=== PATIENT | female | born 1980 | race Caucasian/White ===

== ENCOUNTER 2016-11-07 21:24 | Observation (INO) | payer MEDICAID ==
[2016-11-07] MEDS ORDERED: SODIUM CHLORIDE 0.9% 1,000 ML IV STA ×2 (22:05→23:19)
[2016-11-07] MEDS ORDERED: LORazepam 2 MG/ML SYRINGE IVP STA ×2 (22:05→22:35)
[2016-11-07] MEDS ORDERED: PROMETHAZINE INJ 25 MG in SODIUM CHLORIDE 0.9% 50 ML IV STA (22:05)
[2016-11-07] MEDS ORDERED: SUMAtriptan 6 MG/0.5 ML VIAL SUBQ STA (22:06)
[2016-11-07] MEDS ORDERED: SUMAtriptan 6 MG/0.5 ML VIAL SUBQ ONE (22:18)
[2016-11-07] MEDS ORDERED: PROMETHAZINE 25 MG/1 ML VIAL ONE (22:18)
[2016-11-07] MEDS ORDERED: LORazepam 2 MG/ML SYRINGE ONE ×2 (22:18→22:35)
[2016-11-07] MEDS ORDERED: ONDANSETRON 4 MG/2 ML VIAL IVP STA ×2 (22:33→23:20)
[2016-11-07] MEDS ORDERED: ONDANSETRON 4 MG/2 ML VIAL ONE ×2 (22:34→23:21)
[2016-11-07] MEDS ORDERED: DICYCLOMINE 10 MG CAPSULE PO STA (23:19)
[2016-11-07] MEDS ORDERED: DICYCLOMINE 10 MG CAPSULE PO ONE (23:21)
[2016-11-08] MEDS ORDERED: SODIUM CHLORIDE FLUSH 0.9% 10 ML SYRINGE IVP PRN (02:17)
[2016-11-08] MEDS ORDERED: PROMETHAZINE 25 MG/1 ML VIAL IM PRN (02:17)
[2016-11-08] MEDS ORDERED: ONDANSETRON 4 MG/2 ML VIAL IVP PRN (02:20)
[2016-11-08] MEDS: SODIUM CHLORIDE 0.9% 1,000 ML IV SCH ×2 (03:00→11:09)
[2016-11-08] MEDS: SODIUM CHLORIDE FLUSH 0.9% 10 ML SYRINGE IVP SCH ×2 (05:52→14:28)
[2016-11-08] MEDS ORDERED: LORazepam 2 MG/ML SYRINGE IVP PRN (07:47)
[2016-11-08] MEDS ORDERED: SUMAtriptan 6 MG/0.5 ML VIAL SUBQ ONE (08:03)
[2016-11-08] MEDS ORDERED: POLYETHYLENE GLYCOL 3350 17 GM PACKET PO SCH (09:00)
[2016-11-08] MEDS ORDERED: FAMOTIDINE 20 MG/50 ML 50 ML IV SCH (09:00)
== END 2016-11-08 17:00 | disposition home or self-care (01) ==
DX: G43.D1 Abdominal migraine, intractable (principal); F43.10 Post-traumatic stress disorder, unspecified; F31.9 Bipolar disorder, unspecified; F90.9 Attention-deficit hyperactivity disorder, unspecified type; F41.9 Anxiety disorder, unspecified; Z72.89 Other problems related to lifestyle
CPT/HCPCS: 36415; 74020; 80053; 80306; 80320; 81001; 81025; 83690; 84702; 85025; 87086; 96361; 96365; 96367; 96372; 96375; 96376; 99283; 99284; A9270; G0378; J2060

== ENCOUNTER 2017-11-04 10:27 | Emergency (ER) | payer MEDICAID ==
[2017-11-04] MEDS ORDERED: ONDANSETRON 4 MG/2 ML VIAL IVP STA ×3 (11:42→16:14)
[2017-11-04] MEDS ORDERED: SODIUM CHLORIDE 0.9% 1,000 ML IV ONE (11:42)
[2017-11-04 11:50] LABS: BASOPHILS % (AUTO) 0.2 %; HGB - HEMOGLOBIN 14.5 g/dL (12.0-16.0); LYMPHOCYTES # (AUTO) 1.3 10^3/uL (1.5-3.5); LYMPHOCYTES % (AUTO) 10.3 %; MEAN CORPUSCULAR HEMOGLOBIN 28.7 pg (27.0-31.0); MEAN CORPUSCULAR HGB CONC 33.7 g/dL (32.0-36.0); MEAN CORPUSCULAR VOLUME 85.1 fL (81.0-99.0); MEAN PLATELET VOLUME 9.3 fL (7.9-10.8); MONOCYTES # (AUTO) 1.4 10^3/uL (0.0-1.0); NEUTROPHILS % (AUTO) 78.5 %; PLT - PLATELET COUNT 246 10^3/uL (130-450); RED BLOOD COUNT 5.07 10^6/uL (4.20-5.40); RED CELL DISTRIBUTION WIDTH 13.6 % (12.0-15.0); WHITE BLOOD COUNT 12.7 x10^3/uL (4.8-10.8)
[2017-11-04] MEDS ORDERED: ONDANSETRON 4 MG/2 ML VIAL ONE (11:52)
[2017-11-04 11:59] LABS: ALBUMIN 4.7 g/dL (3.2-5.5); ALBUMIN/GLOBULIN RATIO 1.3 (1.0-2.2); BILIRUBIN,TOTAL 0.9 mg/dL (0.2-1.0); CALCIUM 9.4 mg/dL (8.5-10.3); CREATININE 0.9 mg/dL (0.4-1.0); TOTAL PROTEIN 8.2 g/dL (6.7-8.2)
[2017-11-04 12:16] LABS: HCG,QUALITATIVE BLOOD NEGATIVE
[2017-11-04] MEDS ORDERED: ACETAMINOPHEN 1,000 MG/100 ML 100 ML IV STA (12:21)
[2017-11-04] MEDS ORDERED: LORazepam 2 MG/ML VIAL IVP STA ×2 (12:21→16:14)
--- NOTE | 2017-11-04 12:24 | ED Physician Documentation ---
History of Present Illness - Stated complaint Stated Complaint: VOMITING - Chief complaint Chief Complaint: Abd Pain - Additonal information Additional information: hx from pt 37 f denies preg has IUD and LMP a few days ago no prior abd surgeries hx abd migrained has pain NV c/w her abd migraines took her migraine mneds and ativan at home s relief furthermore, 2/2 the NV she was not able to take her lamictal and she is having lamictal withdrawal symptoms which she describes as feeling like having the flu denies bad food travel sick contacts etc Review of Systems Constitutional: denies: Fever, Chills Cardiac: denies: Chest pain / pressure Respiratory: denies: Dyspnea GI: reports: Abdominal Pain, Nausea, Vomiting. 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) HEENT: Tonsil/Adenoidectomy - Present Medications Home Medications: Ambulatory Orders Medication Instructions Recorded Confirmed Lorazepam [Ativan] 1 mg PO DAILY PRN 01/30/15 11/08/16 Albuterol Sulfate [Ventolin Hfa] 1 puffs IH QID PRN 09/21/15 11/08/16 Hydroxyzine Pamoate 25 - 50 mg PO TID PRN 09/21/15 11/08/16 Ondansetron [Zofran Odt] 8 mg PO Q6H PRN 09/21/15 11/08/16 Cetirizine [ZyrTEC] 10 mg PO DAILY 11/08/16 11/08/16 Dextroamphetamine/Amphetamine 20 mg PO DAILY 11/08/16 11/08/16 [Adderall Xr 20 mg Capsule] Dextroamphetamine/Amphetamine 30 mg PO DAILY 11/08/16 11/08/16 [Adderall Xr 30 mg Capsule] Duloxetine HCl [Cymbalta] 60 mg PO DAILY 11/08/16 11/08/16 Fluticasone [Flonase] 1 sprays AMY DAILY 11/08/16 11/08/16 Gabapentin [Neurontin] 300 mg PO BID PRN 11/08/16 11/08/16 Lurasidone HCl [Latuda] 60 mg PO QPM 11/08/16 11/08/16 Naratriptan HCl [Amerge] 2.5 mg PO PRN PRN 11/08/16 11/08/16 lamoTRIgine [LaMICtal] 300 mg PO DAILY 11/08/16 11/08/16 Ondansetron Odt [Zofran] 4 mg TL Q6H PRN #10 tablet 11/04/17 - Allergies Allergies/Adverse Reactions: Allergies Allergy/AdvReac Type Severity Reaction Status Date / Time amoxicillin [Amoxicillin] Allergy vomiting Verified 11/04/17 10:49 codeine Allergy vomiting Verified 11/04/17 10:49 - Social History Does the pt smoke?: No Smoking Status: Never smoker Does the pt drink ETOH?: No Does the pt have substance abuse?: No - Immunizations Immunizations are current?: Yes - POLST Patient has POLST: No PD ED PE NORMAL - Vitals Vital signs reviewed: Yes - Neck Neck: Supple, no meningeal sign - Cardiac Cardiac: RRR - Respiratory Respiratory: No respiratory distress, Clear bilaterally - Abdomen Abdomen: Soft, Non tender, Other (in pain but non tender on exam) - Derm Derm: Normal color - Neuro Neuro: Alert and oriented X 3 Results - Vitals Vitals: Vital Signs - 24 hr 11/04/17 11/04/17 10:45 17:06 Temperature 37.9 C H 37.2 C Heart Rate 89 74 Respiratory 15 14 Rate Blood Pressure 133/90 H 132/78 H O2 Saturation 97 100 Oxygen O2 Source Room air - Labs Labs: Laboratory Tests 11/04/17 11/04/17 11/04/17 11:35 11:35 11:35 WBC 12.7 H RBC 5.07 Hgb 14.5 Hct 43.1 MCV 85.1 MCH 28.7 MCHC 33.7 RDW 13.6 Plt Count 246 MPV 9.3 Neut # 10.0 H Lymph # 1.3 L [place] # 1.4 H Eos # 0.0 Baso # 0.0 Absolute Nucleated RBC 0.00 Nucleated RBC % 0.0 Sodium 134 L Potassium 2.6 L Chloride 96 L Carbon Dioxide 24 Anion Gap 14.0 H BUN 18 Creatinine 0.9 Estimated GFR (MDRD) 70 L Glucose 121 H Calcium 9.4 Total Bilirubin 0.9 AST 26 ALT 12 Alkaline Phosphatase 59 Total Protein 8.2 Albumin 4.7 Globulin 3.5 Albumin/Globulin Ratio 1.3 Lipase 163 H Serum HCG, Qual NEGATIVE Urine Color Urine Clarity Urine pH Ur Specific [place] Urine Protein Urine Glucose (UA) Urine Ketones Urine Occult Blood Urine Nitrite Urine Bilirubin Urine Urobilinogen Ur Leukocyte Esterase Urine RBC Urine WBC Ur Squamous Epith Cells Amorphous Sediment Urine Bacteria Urine Mucus Ur Microscopic Review Urine Culture Comments Urine HCG, Qual 11/04/17 15:20 WBC RBC Hgb Hct MCV MCH MCHC RDW Plt Count MPV Neut # Lymph # [place] # Eos # Baso # Absolute Nucleated RBC Nucleated RBC % Sodium Potassium Chloride Carbon Dioxide Anion Gap BUN Creatinine Estimated GFR (MDRD) Glucose Calcium Total Bilirubin AST ALT Alkaline Phosphatase Total Protein Albumin Globulin Albumin/Globulin Ratio Lipase Serum HCG, Qual Urine Color YELLOW Urine Clarity CLEAR Urine pH 7.5 Ur Specific [place] 1.015 Urine Protein NEGATIVE Urine Glucose (UA) NEGATIVE Urine Ketones 40 H Urine Occult Blood MODERATE H Urine Nitrite NEGATIVE Urine Bilirubin NEGATIVE Urine Urobilinogen 0.2 (NORMAL) Ur Leukocyte Esterase NEGATIVE Urine RBC 0-5 Urine WBC 0-3 Ur Squamous Epith Cells MANY Squamous H Amorphous Sediment Few Urine Bacteria None Seen Urine Mucus Few Strands Ur Microscopic Review INDICATED Urine Culture Comments NOT INDICATED Urine HCG, Qual NEGATIVE PD MEDICAL DECISION MAKING - ED course ED course: pt with hx abd migraines has sx c/w her abd migraines states zofran ativan and pain meds usually make her bettrer non surgical abd exam labs reviewed - HCG neg and K low and repleted after many hr pt feeling better able to keep down PO lamictal will dc Departure - Departure Disposition: Home, Self Care Clinical Impression: Hypokalemia Abdominal migraine Qualifiers: Intractability: not intractable Qualified Code(s): G43.D0 - Abdominal migraine , not intractable Condition: Good Instructions: ED Potassium Deficiency Follow-Up: Paty Morgan PA-C [Primary Care Provider] - Prescriptions: Ondansetron Odt [Zofran] 4 mg TL Q6H PRN #10 tablet PRN Reason: Nausea / Vomiting Comments: Your labs looked fine except slightly low potassium Continue your usual medications at home Rest and drink plenty of fluids Follow up with your PMD as needed Return if worse Forms: Activity restrictions
[2017-11-04] MEDS ORDERED: POTASSIUM CHLORIDE 20 MEQ TABLET PO STA (12:29)
[2017-11-04] MEDS ORDERED: POTASSIUM CHLOR 10 MEQ/100 ML 10 MEQ/100 ML BAG IV ONE (12:29)
[2017-11-04] MEDS ORDERED: SUMAtriptan 6 MG/0.5 ML VIAL SUBQ STA (13:49)
[2017-11-04 15:29] LABS: BILIRUBIN,URINE NEGATIVE (NEGATIVE); GLUCOSE, URINE (UA) NEGATIVE (NEGATIVE); KETONES,URINE (UA) 40 mg/dL (NEGATIVE); LEUKOCYTE ESTERASE, URINE NEGATIVE (NEGATIVE); NITRITE,URINE NEGATIVE (NEGATIVE); OCCULT BLOOD,URINE MODERATE (NEGATIVE); PH,URINE 7.5 PH (5.0-7.5); PROTEIN,URINE NEGATIVE (NEGATIVE); UROBILINOGEN,URINE 0.2 (NORMAL) E.U./dL (NORMAL)
[2017-11-04 15:31] LABS: CLARITY,URINE CLEAR (CLEAR); HCG UR QUAL NEGATIVE
[2017-11-04 15:51] LABS: AMORPHOUS SEDIMENT,UR Few /LPF; BACTERIA,URINE None Seen /HPF (None Seen); MUCUS,URINE Few Strands; RBC,URINE 0-5 /HPF (0-5); SQUAMOUS EPITHELIAL CELL,UR MANY Squamous (<= Few)
[2017-11-04] MEDS ORDERED: lamoTRIgine 100 MG TABLET PO SCH (18:00)
[2017-11-04 18:22] VITALS: BP 131/74
== END 2017-11-04 19:05 | disposition home or self-care (01) ==
LOC: ED 10:27
DX: G43.D0 Abdominal migraine, not intractable (principal); E87.6 Hypokalemia
CPT/HCPCS: 36415; 80053; 81001; 81003; 81025; 83690; 84703; 85025; 87086; 99283

== ENCOUNTER 2017-11-04 21:18 | Emergency (ER) | payer MEDICAID ==
[2017-11-04] MEDS ORDERED: diphenhydrAMINE INJ 50 MG/ML VIAL IVP STA (21:29)
[2017-11-04] MEDS ORDERED: KETOROLAC 60 MG/2 ML VIAL IVP STA (21:29)
[2017-11-04] MEDS ORDERED: SODIUM CHLORIDE 0.9% 1,000 ML IV ONE ×2 (21:29→23:02)
[2017-11-04] MEDS ORDERED: LORazepam 2 MG/ML VIAL IVP STA (21:30)
[2017-11-04] MEDS ORDERED: ONDANSETRON 4 MG/2 ML VIAL IVP STA (21:30)
[2017-11-04] MEDS ORDERED: FAMOTIDINE 20 MG/2 ML VIAL IVP STA (22:00)
[2017-11-04] MEDS ORDERED: MAG HYDROX/AL HYDROX/SIMETH 30 ML UDC PO STA (22:00)
[2017-11-04] MEDS ORDERED: LIDOCAINE VISCOUS 2% 15 ML UDC MM STA (22:00)
[2017-11-04 22:29] LABS: BASOPHILS # (AUTO) 0.1 10^3/uL (0.0-0.1); BASOPHILS % (AUTO) 0.7 %; HGB - HEMOGLOBIN 12.6 g/dL (12.0-16.0); LYMPHOCYTES # (AUTO) 0.9 10^3/uL (1.5-3.5); LYMPHOCYTES % (AUTO) 11.2 %; MEAN CORPUSCULAR HEMOGLOBIN 28.2 pg (27.0-31.0); MEAN CORPUSCULAR VOLUME 85.4 fL (81.0-99.0); MONOCYTES # (AUTO) 0.7 10^3/uL (0.0-1.0); MONOCYTES % (AUTO) 8.5 %; NEUTROPHILS # (AUTO) 6.3 10^3/uL (1.5-6.6); NEUTROPHILS % (AUTO) 79.6 %; PLT - PLATELET COUNT 224 10^3/uL (130-450); RED BLOOD COUNT 4.48 10^6/uL (4.20-5.40); RED CELL DISTRIBUTION WIDTH 13.6 % (12.0-15.0); WHITE BLOOD COUNT 7.9 x10^3/uL (4.8-10.8)
[2017-11-04 22:37] LABS: CALCIUM 8.5 mg/dL (8.5-10.3); CREATININE 0.9 mg/dL (0.4-1.0); MAGNESIUM 1.9 mg/dL (1.7-2.8)
[2017-11-04] MEDS ORDERED: POTASSIUM CHLOR 10 MEQ/100 ML 10 MEQ/100 ML BAG IV ONE ×2 (23:02)
[2017-11-04] MEDS ORDERED: POTASSIUM CHLORIDE 20 MEQ TABLET PO STA (23:02)
[2017-11-05] MEDS ORDERED: LORazepam 2 MG/ML VIAL IVP STA (00:30)
[2017-11-05] MEDS ORDERED: ONDANSETRON 4 MG/2 ML VIAL IVP STA (00:30)
--- NOTE | 2017-11-05 01:04 | ED Physician Documentation ---
PD HPI ABD PAIN - Stated complaint Stated Complaint: MIGRAINE/VOMITING - Chief complaint Chief Complaint: Abd Pain - History obtained from History obtained from: Patient - History of Present Illness Timing - onset: Today Timing - details: Gradual onset, Intermittant Quality: Cramping, Aching Associated symptoms: Nausea, Vomiting Similar symptoms before: Work up / diagnostics, Treatment Recently seen: Emergency Dept - Additional information Additional information: Patient is a 37 year old female with a history of abdominal migraines with headaches and vomiting who is returning to the emergency department for headache and vomiting. patient was in the emergency department earlier today, was treated and had her potassium replaced. patient states that she tried to go home but her symptoms came back so she returned. Review of Systems Constitutional: denies: Fever, Chills Eyes: reports: Photophobia Ears: denies: Ear pain, Drainage/discharge Nose: reports: Congestion Throat: reports: Reviewed and negative Cardiac: denies: Chest pain / pressure Respiratory: reports: Reviewed and negative GI: reports: Abdominal Pain, Nausea, Vomiting. denies: Constipation, Diarrhea : denies: Dysuria, Frequency, Hesitancy Skin: denies: Rash, Lesions Musculoskeletal: reports: Reviewed and negative Neurologic: reports: Headache. 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) HEENT: Tonsil/Adenoidectomy - Present Medications Home Medications: Ambulatory Orders Medication Instructions Recorded Confirmed Lorazepam [Ativan] 1 mg PO DAILY PRN 01/30/15 11/08/16 Albuterol Sulfate [Ventolin Hfa] 1 puffs IH QID PRN 09/21/15 11/08/16 Hydroxyzine Pamoate 25 - 50 mg PO TID PRN 09/21/15 11/08/16 Ondansetron [Zofran Odt] 8 mg PO Q6H PRN 09/21/15 11/08/16 Cetirizine [ZyrTEC] 10 mg PO DAILY 11/08/16 11/08/16 Dextroamphetamine/Amphetamine 20 mg PO DAILY 11/08/16 11/08/16 [Adderall Xr 20 mg Capsule] Dextroamphetamine/Amphetamine 30 mg PO DAILY 11/08/16 11/08/16 [Adderall Xr 30 mg Capsule] Duloxetine HCl [Cymbalta] 60 mg PO DAILY 11/08/16 11/08/16 Fluticasone [Flonase] 1 sprays AMY DAILY 11/08/16 11/08/16 Gabapentin [Neurontin] 300 mg PO BID PRN 11/08/16 11/08/16 Lurasidone HCl [Latuda] 60 mg PO QPM 11/08/16 11/08/16 Naratriptan HCl [Amerge] 2.5 mg PO PRN PRN 11/08/16 11/08/16 lamoTRIgine [LaMICtal] 300 mg PO DAILY 11/08/16 11/08/16 Ondansetron Odt [Zofran] 4 mg TL Q6H PRN #10 tablet 11/04/17 Ondansetron Odt [Zofran] 4 mg TL Q6H PRN #14 tablet 11/05/17 SUMAtriptan [Imitrex] 25 - 100 mg PO ONCE PRN #15 tablet 11/05/17 - Allergies Allergies/Adverse Reactions: Allergies Allergy/AdvReac Type Severity Reaction Status Date / Time amoxicillin [Amoxicillin] Allergy vomiting Verified 11/04/17 10:49 codeine Allergy vomiting Verified 11/04/17 10:49 - Social History Does the pt smoke?: No Smoking Status: Never smoker Does the pt drink ETOH?: No Does the pt have substance abuse?: No - Immunizations Immunizations are current?: Yes - POLST Patient has POLST: No PD ED PE NORMAL - Vitals Vital signs reviewed: Yes - General General: Alert and oriented X 3 - HEENT HEENT: Atraumatic, PERRL - Neck Neck: Supple, no meningeal sign - Cardiac Cardiac: RRR - Respiratory Respiratory: No respiratory distress - Abdomen Abdomen: Soft, Non distended - Derm Derm: Normal color, No rash - Extremities Extremities: No deformity, Normal ROM s pain - Neuro Neuro: Alert and oriented X 3, 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 No: Rebound, Guarding Results - Vitals Vitals: Vital Signs - 24 hr 11/04/17 11/05/17 11/05/17 21:22 00:49 01:29 Temperature 37.9 C H Heart Rate 95 74 75 Respiratory 18 19 21 Rate Blood Pressure 146/96 H 145/92 H 151/105 H O2 Saturation 100 100 99 11/05/17 02:25 Temperature 36.5 C Heart Rate 84 Respiratory 19 Rate Blood Pressure 114/75 O2 Saturation 97 Oxygen O2 Source Room air - Labs Labs: Laboratory Tests 11/04/17 11/04/17 22:23 22:23 WBC 7.9 RBC 4.48 Hgb 12.6 Hct 38.2 MCV 85.4 MCH 28.2 MCHC 33.0 RDW 13.6 Plt Count 224 MPV 9.0 Neut # 6.3 Lymph # 0.9 L [place] # 0.7 Eos # 0.0 Baso # 0.1 Absolute Nucleated RBC 0.00 Nucleated RBC % 0.0 Sodium 135 Potassium 2.8 L Chloride 100 L Carbon Dioxide 26 Anion Gap 9.0 BUN 14 Creatinine 0.9 Estimated GFR (MDRD) 70 L Glucose 108 H Calcium 8.5 Magnesium 1.9 PD MEDICAL DECISION MAKING - ED course Complexity details: reviewed old records, reviewed results, re-evaluated patient , considered differential, d/w patient ED course: Patient was seen and examined at bedside. IV access was gained and labs were drawn. Patient was treated with fluid bolus, toradol, reglan, benadryl and ativan. Patient reported that she had gastritis from vomiting and was treated with pepcid, maalox and viscous lidocaine. When patient's labs came back she was found to be hypokalemic still and was treated with an additional liter of fluid, two potassium riders and oral potassium. after about three hours patient was feeling a bit better but stated that she still had some symptoms and was treated with ativan and zofran. Patient was again stating she still had pain and asked for sumatriptan. patient was treated with low dose sumatriptan and haldol 5mg. Patient was observed until her symptoms resolved. Patient required no further inpatient work up and was stable for discharge with outpatient follow up. Departure - Departure Disposition: 01 Home, Self Care Clinical Impression: Abdominal migraine, Hypokalemia Condition: Good Instructions: Hypokalemia Dc Follow-Up: Paty Morgan PA-C [Primary Care Provider] - Prescriptions: Ondansetron Odt [Zofran] 4 mg TL Q6H PRN #14 tablet PRN Reason: Nausea / Vomiting SUMAtriptan [Imitrex] 25 - 100 mg PO ONCE PRN #15 tablet PRN Reason: Headache Comments: Your diagnostics today revealed low potassium. It is important that you supplement your diet with high potassium foods. You should follow up with your doctor early next week to re-check your levels as you might need to be on oral supplements. You can take the zofran as needed for nausea and try to stay well hydrated with gatorade or other electrolyte solution. You may return to the emergency department at any time for new, worsening or uncontrollable symptoms.
[2017-11-05] MEDS ORDERED: SUMAtriptan 25 MG TABLET PO STA (01:20)
[2017-11-05] MEDS ORDERED: HALOPERIDOL 5 MG/ML VIAL IVP ONE (01:26)
[2017-11-05 02:30] VITALS: BP 114/75
--- NOTE | 2017-11-06 20:36 | ED Physician Documentation ---
ED Addendum - Addendum Addendum: 11/06/17 20:35 unscheduled return visit - chart accessed for follow up and educational purposes
== END 2017-11-05 02:48 | disposition home or self-care (01) ==
LOC: ED 21:18
DX: G43.D0 Abdominal migraine, not intractable (principal); E87.6 Hypokalemia
CPT/HCPCS: 36415; 80048; 80053; 81001; 81025; 83690; 83735; 84703; 85025; 96361; 96365; 96366; 96367; 96372; 96375; 96376; 99283; 99285; A9270; J0131; J1200; J2060; 81003; 87086

== ENCOUNTER 2017-11-07 08:05 | Observation (INO) | payer MEDICAID ==
[2017-11-07] MEDS ORDERED: SODIUM CHLORIDE 0.9% 1,000 ML IV ONE ×2 (08:45→10:09)
[2017-11-07] MEDS ORDERED: PROCHLORPERAZINE 10 MG/2 ML VIAL IVP STA (08:45)
[2017-11-07] MEDS ORDERED: LIDOCAINE VISCOUS 2% 15 ML UDC MM STA (08:46)
[2017-11-07] MEDS ORDERED: DEXAMETHASONE 10 MG/ML VIAL IVP STA (08:46)
[2017-11-07] MEDS ORDERED: KETOROLAC 15 MG/ML VIAL IVP STA (08:46)
[2017-11-07] MEDS ORDERED: SUCRALFATE 1 GM/10 ML UDC PO STA (08:47)
[2017-11-07] MEDS ORDERED: MAG HYDROX/AL HYDROX/SIMETH 30 ML UDC PO STA (08:47)
--- NOTE | 2017-11-07 08:50 | ED Physician Documentation ---
PD HPI ABD PAIN - Stated complaint Stated Complaint: ABD PX/MIGRAINE - Chief complaint Chief Complaint: Abd Pain - History obtained from History obtained from: Patient - History of Present Illness Timing - onset: How many days ago (55) Timing - duration: Days (5) Timing - details: Abrupt onset, Still present, Waxing and waning Quality: Cramping, Sharp, Pain Location: Epigastric Improved by: Meds Worsened by: Eating, Moving Associated symptoms: Nausea, Vomiting Similar symptoms before: Diagnosis (abdominal migraine) Recently seen: Emergency Dept (The patient was seen in the ED here X 2 and [place] yesterday and released from [place] at 0230 this morning) - Additional information Additional information: 37-year-old female with a history of abdominal migraines usually takes about 5 days to resolve her symptoms. She has had to be admitted to the hospital on a number of times for cyclical vomiting. She states that she has gotten some relief each time and that she continues to have symptoms. She was seen at [facility] yesterday she states that she left the emergency department there with continued abdominal cramping and vomiting. She was upset that she was not admitted to the hospital there last night. She denies cannabis use and she denies frequent bathing. Review of Systems Constitutional: denies: Fever, Chills Eyes: denies: Decreased vision Ears: denies: Ear pain Nose: denies: Congestion Throat: denies: Sore throat Cardiac: denies: Chest pain / pressure, Palpitations Respiratory: denies: Dyspnea, Cough GI: reports: Abdominal Pain, Nausea, Vomiting : denies: Dysuria, Frequency Skin: denies: Rash Musculoskeletal: denies: Neck pain, Back pain, Extremity pain Neurologic: denies: Generalized weakness, Focal weakness, Numbness PD PAST MEDICAL HISTORY - Past Medical History Past Medical History: Yes Cardiovascular: None Respiratory: None Neuro: Headache/migraine, Other Endocrine/Autoimmune: None GI: None, Other : None HEENT: None Psych: Anxiety, Bipolar disorder Musculoskeletal: None Derm: None Other Past Medical History: "abdominal migraines" - Past Surgical History 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) HEENT: Tonsil/Adenoidectomy - Present Medications Home Medications: Ambulatory Orders Medication Instructions Recorded Confirmed Lorazepam [Ativan] 1 mg PO DAILY PRN 01/30/15 11/07/17 Albuterol Sulfate [Ventolin Hfa] 1 puffs IH QID PRN 09/21/15 11/07/17 Hydroxyzine Pamoate 25 - 50 mg PO TID PRN 09/21/15 11/07/17 Ondansetron [Zofran Odt] 8 mg PO Q6H PRN 09/21/15 11/07/17 Cetirizine [ZyrTEC] 10 mg PO DAILY 11/08/16 11/07/17 Dextroamphetamine/Amphetamine 20 mg PO DAILY 11/08/16 11/07/17 [Adderall Xr 20 mg Capsule] Dextroamphetamine/Amphetamine 30 mg PO DAILY 11/08/16 11/07/17 [Adderall Xr 30 mg Capsule] Duloxetine HCl [Cymbalta] 60 mg PO DAILY 11/08/16 11/07/17 Fluticasone [Flonase] 1 sprays AMY DAILY 11/08/16 11/07/17 Gabapentin [Neurontin] 300 mg PO BID PRN 11/08/16 11/07/17 Lurasidone HCl [Latuda] 60 mg PO QPM 11/08/16 11/07/17 Naratriptan HCl [Amerge] 2.5 mg PO PRN PRN 11/08/16 11/07/17 lamoTRIgine [LaMICtal] 300 mg PO DAILY 11/08/16 11/07/17 Ondansetron Odt [Zofran] 4 mg TL Q6H PRN #10 tablet 11/04/17 11/07/17 Ondansetron Odt [Zofran] 4 mg TL Q6H PRN #14 tablet 11/05/17 11/07/17 SUMAtriptan [Imitrex] 25 - 100 mg PO ONCE PRN #15 tablet 11/05/17 11/07/17 - Allergies Allergies/Adverse Reactions: Allergies Allergy/AdvReac Type Severity Reaction Status Date / Time amoxicillin [Amoxicillin] Allergy vomiting Verified 11/04/17 10:49 codeine Allergy vomiting Verified 11/04/17 10:49 - Social History Does the pt smoke?: No Smoking Status: Never smoker Does the pt drink ETOH?: No Does the pt have substance abuse?: No - Immunizations Immunizations are current?: Yes - POLST Patient has POLST: No PD ED PE NORMAL - Vitals Vital signs reviewed: Yes (hypertensive) - General General: Alert and oriented X 3, Well developed/nourished, Other (37 y/o female in a darkened room appears to be 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 ) - HEENT HEENT: Atraumatic, PERRL, EOMI, Other (dry mucous membranes) - Neck Neck: Supple, no meningeal sign, No bony TTP - Cardiac Cardiac: RRR, No murmur - Respiratory Respiratory: No respiratory distress, Clear bilaterally - Abdomen Abdomen: Soft, Non tender - Back Back: No CVA TTP, No spinal TTP - Derm Derm: Normal color, Warm and dry, No rash - Extremities Extremities: No deformity, No edema - Neuro Neuro: No motor deficit, No sensory deficit Eye Opening: Spontaneous Motor: Obeys Commands Verbal: Oriented GCS Score: 15 - Psych Psych: Normal mood, Normal affect Results - Vitals Vitals: Vital Signs - 24 hr 11/07/17 11/07/17 08:14 09:52 Temperature 37.0 C 37.4 C Heart Rate 79 80 Respiratory 16 16 Rate Blood Pressure 150/108 H 149/104 H O2 Saturation 100 99 Oxygen O2 Source Room air - Labs Labs: Laboratory Tests 11/07/17 11/07/17 09:05 09:05 WBC 8.6 RBC 5.25 Hgb 15.0 Hct 44.1 MCV 84.1 MCH 28.5 MCHC 33.9 RDW 13.4 Plt Count 239 MPV 9.0 Neut # 6.5 Lymph # 1.2 L [place] # 0.8 Eos # 0.0 Baso # 0.0 Absolute Nucleated RBC 0.00 Nucleated RBC % 0.0 Sodium 131 L Potassium 2.9 L Chloride 95 L Carbon Dioxide 25 Anion Gap 11.0 BUN 8 Creatinine 0.7 Estimated GFR (MDRD) 94 Glucose 99 Calcium 9.0 Total Bilirubin 0.9 AST 19 ALT 11 Alkaline Phosphatase 57 Total Protein 8.0 Albumin 4.6 Globulin 3.4 Albumin/Globulin Ratio 1.4 Lipase 252 H Procedures - IVC sono (time) 0845 Bedside IVC sono: IVC measures (cm) (1.22), IVC collapsed c insp (cm) (complete) , Dehydration (est 1 liter deficit) PD MEDICAL DECISION MAKING - ED course Complexity details: reviewed old records, reviewed results, re-evaluated patient , considered differential, d/w patient ED course: 37-year-old female with abdominal migraines has had a lot of Ativan Zofran and IV saline in the past 4 days. This morning she continues to be mildly dehydrated despite 3 visits to the emergency department and multiple administrations of intravenous saline. This morning she is given a cocktail of Compazine Benadryl Toradol and dexamethasone with a liter of saline in addition to that a GI cocktail consisting of viscous lidocaine and Mylanta The patient has some improvement in symptoms but continues to have some abdominal pain and tenderness. Today here lipase is elevated to 252 and this has trended up since the onset of illness. She has prior history of similar about 2 years ago when she required a 3 day hospitalization with similar symptoms and at that time her lipase peaked at 660. She has persistent hypokalemia and will require IV potassium as well. Departure - Departure Disposition: ED Place in Observation Clinical Impression: Hypokalemia Pancreatitis Qualifiers: Chronicity: acute Pancreatitis type: unspecified pancreatitis type Acute pancreatitis complication: unspecified Qualified Code(s): K85.90 - Acute pancreatitis without necrosis or infection, unspecified Condition: Stable
[2017-11-07] MEDS: diphenhydrAMINE INJ 50 MG/ML VIAL IVP STA (09:21)
[2017-11-07 09:42] LABS: BASOPHILS % (AUTO) 0.2 %; EOSINOPHILS % (AUTO) 0.1 %; LYMPHOCYTES # (AUTO) 1.2 10^3/uL (1.5-3.5); MEAN CORPUSCULAR HEMOGLOBIN 28.5 pg (27.0-31.0); MEAN CORPUSCULAR HGB CONC 33.9 g/dL (32.0-36.0); MEAN CORPUSCULAR VOLUME 84.1 fL (81.0-99.0); MONOCYTES # (AUTO) 0.8 10^3/uL (0.0-1.0); MONOCYTES % (AUTO) 9.4 %; NEUTROPHILS # (AUTO) 6.5 10^3/uL (1.5-6.6); NEUTROPHILS % (AUTO) 76.3 %; PLT - PLATELET COUNT 239 10^3/uL (130-450); RED BLOOD COUNT 5.25 10^6/uL (4.20-5.40); RED CELL DISTRIBUTION WIDTH 13.4 % (12.0-15.0); WHITE BLOOD COUNT 8.6 x10^3/uL (4.8-10.8)
[2017-11-07 09:49] LABS: ALBUMIN 4.6 g/dL (3.2-5.5); ALBUMIN/GLOBULIN RATIO 1.4 (1.0-2.2); BILIRUBIN,TOTAL 0.9 mg/dL (0.2-1.0); CREATININE 0.7 mg/dL (0.4-1.0)
[2017-11-07] MEDS ORDERED: POTASSIUM CHLOR 10 MEQ/100 ML 10 MEQ/100 ML BAG IV ONE (11:47)
[2017-11-07] MEDS ORDERED: HYDROmorphone 1 MG/ML CARPUJECT IVP PRN (13:01)
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
[2017-11-07 13:42] LABS: BILIRUBIN,URINE NEGATIVE (NEGATIVE); GLUCOSE, URINE (UA) NEGATIVE (NEGATIVE); KETONES,URINE (UA) 40 mg/dL (NEGATIVE); LEUKOCYTE ESTERASE, URINE NEGATIVE (NEGATIVE); NITRITE,URINE NEGATIVE (NEGATIVE); OCCULT BLOOD,URINE TRACE-LYSE (NEGATIVE); PH,URINE 7.5 PH (5.0-7.5); PROTEIN,URINE NEGATIVE (NEGATIVE); UROBILINOGEN,URINE 0.2 (NORMAL) E.U./dL (NORMAL)
[2017-11-07 13:43] LABS: CLARITY,URINE CLEAR (CLEAR)
[2017-11-07] MEDS: NS W/20 MEQ KCL 1,000 ML IV SCH (14:30)
[2017-11-07] MEDS: SODIUM CHLORIDE FLUSH 0.9% 10 ML SYRINGE IVP SCH (19:23)
--- NOTE | 2017-11-07 19:54 | ED Physician Documentation ---
ED Addendum - Addendum Addendum: 11/07/17 19:53 unscheduled return visit X 2 - chart accessed for follow up and educational purposes
[2017-11-07] MEDS ORDERED: ONDANSETRON 8 MG PO PRN (22:29)
[2017-11-07] MEDS ORDERED: NON FORMULARY MED (Lorazepam [Ativan] 1 MG) PO PRN (22:29)
[2017-11-07] MEDS ORDERED: SUMAtriptan 25 MG TABLET PO PRN (22:29)
[2017-11-07] MEDS ORDERED: hydrOXYzine PAMOATE 25 MG CAPSULE PO PRN ×2 (22:29→23:45)
[2017-11-07] MEDS ORDERED: ALBUTEROL SULFATE IH PRN (22:29)
[2017-11-07] MEDS ORDERED: GABAPENTIN 300 MG CAPSULE PO PRN ×3 (22:29→23:41)
[2017-11-07] MEDS ORDERED: ONDANSETRON ODT 4 MG TABLET TL PRN (23:37)
[2017-11-07] MEDS ORDERED: ONDANSETRON ODT 4 MG TABLET PO PRN (23:38)
[2017-11-07] MEDS ORDERED: ALBUTEROL 6.7 GM INHALER INH PRN (23:46)
[2017-11-07] MEDS ORDERED: ZOLPIDEM 5 MG TABLET PO PRN (23:47)
[2017-11-08] MEDS: SODIUM CHLORIDE FLUSH 0.9% 10 ML SYRINGE IVP SCH ×3 (00:15→16:12)
[2017-11-08] MEDS: NS W/20 MEQ KCL 1,000 ML IV SCH ×4 (00:16→16:16)
[2017-11-08] MEDS: PANTOPRAZOLE 40 MG TABLET PO SCH ×2 (00:16→06:22)
[2017-11-08] MEDS: LORazepam 0.5 MG TABLET PO PRN ×2 (03:20→14:30)
[2017-11-08 05:59] LABS: BASOPHILS % (AUTO) 0.2 %; HGB - HEMOGLOBIN 12.1 g/dL (12.0-16.0); LYMPHOCYTES # (AUTO) 2.2 10^3/uL (1.5-3.5); LYMPHOCYTES % (AUTO) 26.3 %; MEAN CORPUSCULAR HEMOGLOBIN 28.9 pg (27.0-31.0); MEAN CORPUSCULAR HGB CONC 33.9 g/dL (32.0-36.0); MEAN CORPUSCULAR VOLUME 85.3 fL (81.0-99.0); MEAN PLATELET VOLUME 8.9 fL (7.9-10.8); MONOCYTES # (AUTO) 0.8 10^3/uL (0.0-1.0); MONOCYTES % (AUTO) 10.3 %; NEUTROPHILS # (AUTO) 5.2 10^3/uL (1.5-6.6); NEUTROPHILS % (AUTO) 63.2 %; PLT - PLATELET COUNT 206 10^3/uL (130-450); RED BLOOD COUNT 4.18 10^6/uL (4.20-5.40); RED CELL DISTRIBUTION WIDTH 13.6 % (12.0-15.0); WHITE BLOOD COUNT 8.2 x10^3/uL (4.8-10.8)
[2017-11-08 06:05] LABS: ALBUMIN 3.6 g/dL (3.2-5.5); ALBUMIN/GLOBULIN RATIO 1.6 (1.0-2.2); ALKALINE PHOSPHATASE 42 IU/L (42-121); ALT ALANINE AMINOTRANSFERASE < 10 IU/L (10-60); AMYLASE 139 U/L (28-100); AST ASPARTATE AMINOTRANSFERASE 15 IU/L (10-42); BILIRUBIN,TOTAL 0.7 mg/dL (0.2-1.0); BUN - BLOOD UREA NITROGEN 5 mg/dL (6-20); CALCIUM 8.1 mg/dL (8.5-10.3); CARBON DIOXIDE - CO2 24 mmol/L (21-32); CHLORIDE 106 mmol/L (101-111); CREATININE 0.5 mg/dL (0.4-1.0); GFR - MDRD 139 (>89); GLUCOSE 95 mg/dL (70-100); SODIUM 135 mmol/L (135-145); TOTAL PROTEIN 5.9 g/dL (6.7-8.2)
[2017-11-08 06:25] LABS: HB2 TOTAL 12.9 g/dL; HEMOGLOBIN A1C 0.42 g/dL; HEMOGLOBIN A1C % 5.1 % (4.6-6.2)
[2017-11-08] MEDS ORDERED: ALBUTEROL NEB 2.5 MG/3 ML INH PRN (07:10)
[2017-11-08] MEDS: lamoTRIgine 100 MG TABLET PO SCH (08:06)
[2017-11-08] MEDS: DULoxetine 30 MG CAPSULE PO SCH (08:06)
[2017-11-08] MEDS: FLUTICASONE NASAL SPRAY NAS SCH (08:07)
[2017-11-08] MEDS: CETIRIZINE 10 MG TABLET PO SCH (08:07)
[2017-11-08] MEDS: POLYETHYLENE GLYCOL 3350 17 GM PACKET PO SCH (08:10)
[2017-11-08] MEDS ORDERED: NON FORMULARY MED (Duloxetine Hcl [Cymbalta] 60 MG) PO SCH (09:00)
[2017-11-08] MEDS ORDERED: diphenhydrAMINE INJ 50 MG/ML VIAL IVP PRN (13:00)
[2017-11-08] MEDS: diphenhydrAMINE INJ 50 MG/ML VIAL IVP STA (13:11)
[2017-11-08] MEDS ORDERED: POTASSIUM CHLORIDE INJ 40 MEQ in SODIUM CHLORIDE 0.9% 480 ML IV ONE (13:30)
[2017-11-08] MEDS ORDERED: SUMAtriptan 6 MG/0.5 ML VIAL SUBQ SCH (13:59)
[2017-11-08] MEDS ORDERED: LORazepam 0.5 MG TABLET PO PRN (14:03)
[2017-11-08] MEDS ORDERED: IOPAMIDOL-300 50 ML VIAL ONE (14:39)
[2017-11-08] MEDS ORDERED: IOPAMIDOL-300 100 ML VIAL ONE (14:40)
[2017-11-08 15:12] LABS: HCG UR QUAL NEGATIVE
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
[2017-11-08] MEDS: ONDANSETRON 4 MG/2 ML VIAL IVP PRN (18:49)
[2017-11-08] MEDS ORDERED: IOPAMIDOL-300 100 ML VIAL IVP ONE (20:01)
--- NOTE | 2017-11-08 20:22 | CT Preliminary Report ---
Exam: CT ABDOMEN/PELVIS W/ IMPRESSION: 1. IUD. 2. Stable, otherwise unremarkable exam. [facility] SITE ID: [id number]
--- NOTE | 2017-11-08 20:26 | CT Report ---
EXAM: CT ABDOMEN AND PELVIS EXAM DATE: 11/08/2017 08:03 PM. CLINICAL HISTORY: Nausea/vomiting, abdominal pain. COMPARISONS: 02/21/2016. TECHNIQUE: Routine helical CT imaging was performed through the abdomen and pelvis. IV contrast: 100 mL Isovue 300. Enteric contrast: No. Reconstructions: Coronal and sagittal. In accordance with CT protocol optimization, one or more of the following dose reduction techniques w ere utilized for this exam: automated exposure control, adjustment of mA and/or KV based on patient s ize, or use of iterative reconstructive technique. FINDINGS: Lung Bases: Unremarkable. Liver: Normal. No masses. Gallbladder/Bile Ducts: Unremarkable. Spleen: Normal. Pancreas: Normal. Adrenal Glands: Normal. Kidneys: Normal. No masses or hydronephrosis. Peritoneal Cavity/Bowel: Normal. No free fluid, free air or adenopathy. No masses or acute inflammato ry process. The appendix is well visualized and normal. Pelvic Organs: IUD remains in place. The bladder and visualized pelvic organs are within normal limit s. Vasculature: No aneurysms or other significant abnormality. Bones: No significant abnormality. Other: None. IMPRESSION: 1. IUD. 2. Stable, otherwise unremarkable exam. [facility] Referring Provider Line: [phone] SITE ID: [id number]
[2017-11-08] MEDS ORDERED: PROCHLORPERAZINE INJ 10 MG in SODIUM CHLORIDE 0.9% 50 ML IV PRN (22:42)
[2017-11-08] MEDS ORDERED: PROCHLORPERAZINE 25 MG SUPP PR PRN (22:42)
[2017-11-09] MEDS: ONDANSETRON 4 MG/2 ML VIAL IVP PRN (00:27)
[2017-11-09] MEDS: SODIUM CHLORIDE FLUSH 0.9% 10 ML SYRINGE IVP SCH ×2 (01:13→08:57)
[2017-11-09] MEDS: NS W/20 MEQ KCL 1,000 ML IV SCH (01:45)
[2017-11-09] MEDS ORDERED: SUMAtriptan 25 MG TABLET PO SCH (03:45)
[2017-11-09] MEDS ORDERED: ACETAMINOPHEN 500 MG TABLET PO PRN (03:46)
[2017-11-09] MEDS ORDERED: METOCLOPRAMIDE 10 MG/2 ML VIAL IVP PRN (03:46)
[2017-11-09 05:24] LABS: BASOPHILS % (AUTO) 0.3 %; HGB - HEMOGLOBIN 13.5 g/dL (12.0-16.0); LYMPHOCYTES # (AUTO) 1.3 10^3/uL (1.5-3.5); LYMPHOCYTES % (AUTO) 13.4 %; MEAN CORPUSCULAR HEMOGLOBIN 28.3 pg (27.0-31.0); MEAN CORPUSCULAR HGB CONC 33.1 g/dL (32.0-36.0); MEAN CORPUSCULAR VOLUME 85.5 fL (81.0-99.0); MEAN PLATELET VOLUME 8.8 fL (7.9-10.8); MONOCYTES # (AUTO) 0.9 10^3/uL (0.0-1.0); MONOCYTES % (AUTO) 9.8 %; NEUTROPHILS # (AUTO) 7.3 10^3/uL (1.5-6.6); NEUTROPHILS % (AUTO) 76.5 %; PLT - PLATELET COUNT 234 10^3/uL (130-450); RED BLOOD COUNT 4.77 10^6/uL (4.20-5.40); RED CELL DISTRIBUTION WIDTH 13.7 % (12.0-15.0); WHITE BLOOD COUNT 9.5 x10^3/uL (4.8-10.8)
[2017-11-09 05:37] LABS: ALBUMIN/GLOBULIN RATIO 1.4 (1.0-2.2); BILIRUBIN,DIRECT 0.1 mg/dL (0.1-0.5); BILIRUBIN,TOTAL 0.7 mg/dL (0.2-1.0); CALCIUM 8.6 mg/dL (8.5-10.3); CREATININE 0.7 mg/dL (0.4-1.0); TOTAL PROTEIN 6.8 g/dL (6.7-8.2)
[2017-11-09] MEDS: PANTOPRAZOLE 40 MG TABLET PO SCH (06:37)
[2017-11-09] MEDS ORDERED: PROCHLORPERAZINE 10 MG/2 ML VIAL IVP PRN (07:10)
[2017-11-09] MEDS ORDERED: METHYLNALTREXONE 12 MG/0.6 ML VIAL SUBQ SCH (08:43)
[2017-11-09] MEDS ORDERED: PROPRANOLOL 1 MG/ML VIAL IVP SCH (08:53)
[2017-11-09] MEDS: FLUTICASONE NASAL SPRAY NAS SCH ×2 (08:55→11:48)
[2017-11-09] MEDS: DULoxetine 30 MG CAPSULE PO SCH (08:55)
[2017-11-09] MEDS: CETIRIZINE 10 MG TABLET PO SCH (08:55)
[2017-11-09] MEDS: POLYETHYLENE GLYCOL 3350 17 GM PACKET PO SCH (08:56)
[2017-11-09] MEDS: SODIUM CHLORIDE FLUSH 0.9% 10 ML SYRINGE IVP PRN ×2 (09:06→14:48)
[2017-11-09] MEDS: DEXAMETHASONE 10 MG/ML VIAL IVP SCH ×2 (10:03→14:47)
[2017-11-09] MEDS: lamoTRIgine 100 MG TABLET PO SCH (10:04)
--- NOTE | 2017-11-09 10:34 | Ultrasound Report ---
ABDOMINAL ULTRASOUND: 11/09/2017 CLINICAL INDICATION: Nausea, vomiting, pain. COMPARISON: Ultrasound to 09/20/2015, CT 11/08/2017. TECHNIQUE: Real-time scanning was performed with door to door sales representative static images obtained. FINDINGS: The liver measures 15.7 cm. Hepatic echotexture is normal. No intrahepatic biliary dilatation or focal parenchymal lesion is present. The common bile duct measures 4 mm. The gallbladder is normal. The pancreas is obscured by bowel gas. The spleen measures 8.8 cm, and demonstrates normal echotexture. The kidneys are normal, with the right measuring 10.9 cm, and the left measuring 12.1 cm. The abdominal aorta is normal in caliber throughout. The inferior vena cava is unremarkable. No free fluid is present. IMPRESSION: NORMAL ABDOMINAL ULTRASOUND. TD: 11/09/2017 10:33
--- NOTE | 2017-11-09 14:49 | Discharge Plan ---
Discharge Plan Disposition: Home, Self Care Condition: Good Prescriptions: Dexamethasone [Decadron] 1 mg PO BIDWM 10 Days #20 tablet Prochlorperazine Supp [Compazine Supp] 25 mg VA BID #20 supp Diet: Regular Activity Restrictions: No Restrictions Shower Restrictions: No Driving Restrictions: No Weight Bearing: Full Weight Additional Instructions or Follow Up instructions: You were admitted for nausea, vomiting, and abdominal pain. Your pancreatic enzymes were elevated, but now normal. Although you are not feeling "back to your self", you are medically stable and I am not concerned that things will get worse. To help out, I will recommend a few more days of decadron and to think about weaning off a few of your usual medications since 3 of them have been shown to cause pancreatitis, and they are: Cymbalta, Latuda, and Lamictal. A triglyceride level should be checked to rule out this as a cause to the elevated enzyme level. Dr. Jonathan Thomas, GI specialist reviewed your case with me. All imaging was found to be normal. Get plenty of rest, and use the suppository anti-emetic to help control the nausea and vomiting. You should stay off work until you follow up with your PCP. No Smoking: If you smoke, Please STOP! Call for help. Follow-up with: Paty Morgan PA-C [Primary Care Provider] -
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
[2017-11-09 15:46] VITALS: BP 145/97
== END 2017-11-09 19:24 | disposition home or self-care (01) ==
LOC: ED 08:05 → OBS 11:57
PROVIDERS: ADMIT Nurse Practitioner; ATTEND Nurse Practitioner
DX: G43.D0 Abdominal migraine, not intractable (principal); F14.129 Cocaine abuse with intoxication, unspecified; F12.129 Cannabis abuse with intoxication, unspecified; F90.9 Attention-deficit hyperactivity disorder, unspecified type; F43.10 Post-traumatic stress disorder, unspecified; K86.1 Other chronic pancreatitis; E87.6 Hypokalemia; K58.9 Irritable bowel syndrome, unspecified; F41.9 Anxiety disorder, unspecified; F98.8 Other specified behavioral and emotional disorders with onset usually occurring in childhood and adolescence; F31.9 Bipolar disorder, unspecified; J45.909 Unspecified asthma, uncomplicated; E66.9 Obesity, unspecified; Z68.34 Body mass index [BMI] 34.0-34.9, adult; Z79.51 Long term (current) use of inhaled steroids; Z79.899 Other long term (current) drug therapy; Z87.891 Personal history of nicotine dependence
CPT/HCPCS: 36415; 74177; 76700; 80053; 80076; 81003; 81025; 82150; 83036; 83690; 84443; 84478; 85025; 93005; 96361; 96365; 96366; 96372; 96375; 96376; 99283; 99284; A9270; G0378; J1200; J2212; J2765; Q0162; Q9967; 80306; 80320; 81001; 87086

== ENCOUNTER → 2021-04-10 | Emergency (ER) | payer MEDICAID | LOC: ED 16:58 | DX: Z53.9 Procedure and treatment not carried out, unspecified reason (principal) ==

== ENCOUNTER 2021-08-30 15:45 | Emergency (ER) | payer MEDICAID ==
[2021-08-30 15:54] VITALS: BP 123/82
--- NOTE | 2021-08-30 16:17 | ED Physician Documentation ---
PD HPI HEENT - Stated complaint Stated Complaint: LEFT SIDE MOUTH PX - Chief complaint Chief Complaint: Heent - History obtained from History obtained from: Patient - Additional information Additional information: 40-year-old woman failed to follow-up after a partial root canal about 3 months ago and now has a recurrent dental infection. Reportedly saw her dentist and was sent here for antibiotics. Review of Systems Constitutional: reports: Reviewed and negative Eyes: reports: Reviewed and negative Ears: reports: Reviewed and negative PD PAST MEDICAL HISTORY - Past Medical History Cardiovascular: None Respiratory: None Endocrine/Autoimmune: None GI: Chronic diarrhea, Chronic constipation, Other (IBS) IMPLEMENTATION SPECIALIST: None : None HEENT: None Psych: Anxiety, Bipolar disorder, ADD/ADHD, Post traumatic stress disorder Musculoskeletal: Fatigue Derm: Eczema - Past Surgical History Past Surgical History: Yes General: EGD /IMPLEMENTATION SPECIALIST: LEEP (Cervical surgery) HEENT: Tonsil/Adenoidectomy - Present Medications Home Medications: Ambulatory Orders Medication Instructions Recorded Confirmed Lorazepam [Ativan] 1 mg PO DAILY PRN 01/30/15 11/07/17 Albuterol Sulfate [Ventolin Hfa] 1 puffs IH QID PRN 09/21/15 11/07/17 Hydroxyzine Pamoate 25 - 50 mg PO TID PRN 09/21/15 11/07/17 Ondansetron [Zofran Odt] 8 mg PO Q6H PRN 09/21/15 11/07/17 Cetirizine [ZyrTEC] 10 mg PO DAILY 11/08/16 11/07/17 Dextroamphetamine/Amphetamine 60 mg PO DAILY 11/08/16 11/07/17 [Adderall Xr 30 mg Capsule] Fluticasone [Flonase] 1 sprays AMY DAILY 11/08/16 11/07/17 Gabapentin [Neurontin] 300 mg PO BID PRN 11/08/16 11/07/17 Naratriptan HCl [Amerge] 2.5 mg PO PRN PRN 11/08/16 11/07/17 lamoTRIgine [LaMICtal] 300 mg PO DAILY 11/08/16 11/07/17 SUMAtriptan [Imitrex] 25 - 100 mg PO DAILY PRN 11/07/17 11/07/17 Prochlorperazine Supp [Compazine 25 mg [place] BID #20 supp 11/09/17 Supp] dexAMETHasone [Decadron] 1 mg PO BIDWM 10 Days #20 tablet 11/09/17 Cyclobenzaprine [Flexeril] 10 mg PO TID PRN #7 tablet 08/30/21 clindamycin HCL [Cleocin HCl] 300 mg PO QID #40 cap 08/30/21 - Allergies Allergies/Adverse Reactions: Allergies Allergy/AdvReac Type Severity Reaction Status Date / Time amoxicillin [Amoxicillin] Allergy vomiting Verified 08/30/21 15:50 codeine Allergy vomiting Verified 08/30/21 15:50 - Social History Does the pt smoke?: No Smoking Status: Former smoker Does the pt drink ETOH?: No Does the pt have substance abuse?: No - Immunizations Immunizations are current?: Yes - POLST Patient has POLST: No POLST Status: Full Code PD ED PE NORMAL - Vitals Vital signs reviewed: Yes - General General: Alert and oriented X 3, No acute distress - HEENT HEENT: Other (Tender second molar on the left mandible without sublingual edema or trismus. There is mild facial swelling.) - Neuro Neuro: Alert and oriented X 3, Normal speech - Psych Psych: Normal mood, Normal affect Results - Vitals Vitals: Vital Signs - 24 hr 08/30/21 15:50 Temperature 37.7 C Heart Rate 89 Respiratory 18 Rate Blood Pressure 123/82 H O2 Saturation 99 Oxygen O2 Source Room air PD MEDICAL DECISION MAKING - ED course ED course: 40-year-old woman presents with a dental infection. I offered antibiotics and painkillers. She would like to have IV antibiotics at least initially. I discussed with Her that that I do not think it would change the treatment course, and after that discussion she declined IV antibiotics although I made clear that I was still willing to offer them. She did not want pain medication but would prefer a muscle relaxer. Departure - Departure Disposition: 01 Home, Self Care Clinical Impression: Dental infection Condition: Good Record reviewed to determine appropriate education?: Yes Instructions: ED Tooth Pain Prescriptions: clindamycin HCL [Cleocin HCl] 300 mg PO QID #40 cap Cyclobenzaprine [Flexeril] 10 mg PO TID PRN #7 tablet PRN Reason: Spasms Comments: I sent your prescriptions electronically to [facility] in [place]. Do not drink or drive while taking Flexeril. It is very important that you follow-up with a dentist. When it comes to dental problems like yours, the emergency department can only offer a short-term solution to your long-term problem. A couple of low cost options for dental care include: [facility] in [place], calls [phone] for an appointment Or [facility] in [place], call [phone] for an appointment.
== END 2021-08-30 16:25 | disposition home or self-care (01) ==
LOC: ED 15:45
DX: K04.7 Periapical abscess without sinus (principal); Z87.891 Personal history of nicotine dependence
CPT/HCPCS: 99282; 99283